=== PATIENT | male | born 1945 | race Caucasian/White ===

== ENCOUNTER → 2017-08-03 | Outpatient (CLI) | payer OTHER | LOC: CFH 08:32 | PROVIDERS: ATTEND Nurse Practitioner | DX: I65.21 Occlusion and stenosis of right carotid artery (principal); I34.9 Nonrheumatic mitral valve disorder, unspecified; I05.9 Rheumatic mitral valve disease, unspecified; I10 Essential (primary) hypertension; Z86.73 Personal history of transient ischemic attack (TIA), and cerebral infarction without residual deficits | CPT/HCPCS: 93306; 93880 ==

== ENCOUNTER 2018-10-10 07:34 | Outpatient (CLI) | payer MEDICARE | END 2018-10-10 23:59 | disposition home or self-care (01) | LOC: CVU 07:34 | PROVIDERS: ATTEND Internal Medicine Cardiovascular Disease | DX: I08.8 Other rheumatic multiple valve diseases (principal); I10 Essential (primary) hypertension | CPT/HCPCS: 93306 ==

== ENCOUNTER 2019-12-15 08:00 | Outpatient (CLI) | payer MEDICARE | END 2019-12-15 23:59 | disposition home or self-care (01) | LOC: SDC 08:00 → EDSTATUS 08:00 → SDC 23:59 | PROVIDERS: ATTEND Internal Medicine Gastroenterology | DX: R19.5 Other fecal abnormalities (principal); Z11.59 Encounter for screening for other viral diseases; Z53.8 Procedure and treatment not carried out for other reasons | CPT/HCPCS: 36415; 87635 ==

== ENCOUNTER 2019-12-28 06:32 | Day surgery (SDC) | payer MEDICARE ==
[~2019-12-28] VITALS: Ht 179.1 cm; Wt 130.2 kg
[2019-12-28] MEDS ORDERED: ASPI325T17 PO (07:33)
[2019-12-28] MEDS ORDERED: GLUC15006 PO (07:33)
[2019-12-28] MEDS ORDERED: ROSU10TA2 PO (07:33)
[2019-12-28] MEDS ORDERED: NAPR220C2 PO (07:33)
[2019-12-28] MEDS ORDERED: METO50TA82 PO (07:33)
[2019-12-28] MEDS ORDERED: CHON400C PO (07:33)
[2019-12-28] MEDS ORDERED: LACTATED RINGERS 1,000 ML IV SCH (07:33)
[2019-12-28] MEDS ORDERED: ALLO300T PO (07:33)
[2019-12-28] MEDS ORDERED: CYAN-27 PO (07:33)
[2019-12-28] MEDS ORDERED: OMEG1CAP23 PO (07:33)
[2019-12-28] MEDS ORDERED: MULT-658 PO (07:33)
[2019-12-28] MEDS ORDERED: CHOL200052 PO (07:33)
[2019-12-28] MEDS ORDERED: BENA40TA3 PO (07:33)
[2019-12-28 07:34] VITALS: BP 146/73
[2019-12-28] MEDS ORDERED: CHLORHEXIDINE 15 ML UDC ONE (07:43)
[2019-12-28] MEDS ORDERED: CHLORHEXIDINE 15 ML UDC MM ONE (08:00)
[2019-12-28] MEDS ORDERED: PROPOFOL 100 ML ONE (08:34)
[2019-12-28 08:42] LABS: ALBUMIN 3.7 g/dL (3.4-5.0); ANION GAP 3 mmol/L (5-15); CALCIUM 9.5 mg/dL (8.5-10.1); CHLORIDE 108 mmol/L (98-107)
[2019-12-28 08:45] LABS: ALANINE AMINOTRANSFERASE 32 U/L (12-78); ALKALINE PHOSPHATASE 85 U/L (45-117); BILIRUBIN,TOTAL 0.6 mg/dL (0.2-1.0); CREATININE 0.95 mg/dL (0.7-1.3); TOTAL PROTEIN 7.6 g/dL (6.4-8.2)
[2019-12-28] MEDS ORDERED: LABETALOL 5MG/ML, 20ML IV PRN (09:00)
[2019-12-28] MEDS ORDERED: MEPERIDINE/PF 25MG/0.5ML IVPush PRN (09:00)
[2019-12-28] MEDS ORDERED: HYDROmorphone 2 MG/ML, 1ML IVPush PRN (09:00)
[2019-12-28] MEDS ORDERED: hydrALAzine 20 MG/ML, 1ML IV PRN (09:00)
[2019-12-28] MEDS ORDERED: OXYcodone 5 MG/5 ML ORAL.SOL UDC PO PRN (09:00)
[2019-12-28] MEDS ORDERED: KETOROLAC 30 MG/1 ML IV PRN (09:00)
[2019-12-28] MEDS ORDERED: ACETAMINOPHEN 325 MG TABLET PO PRN (09:00)
[2019-12-28] MEDS ORDERED: DIAZEPAM 5 MG/ML, 2ML IVPush PRN (09:00)
[2019-12-28] MEDS ORDERED: PROMETHAZINE 25 MG/ML, 1ML IV PRN (09:00)
[2019-12-28] MEDS ORDERED: FENTANYL PF 100 MCG/2ML IV PRN (09:00)
[2019-12-28] MEDS ORDERED: ALBUTEROL SULFATE 2.5 MG/3 ML NPPB PRN (09:00)
== END 2019-12-28 10:20 | disposition home or self-care (01) ==
LOC: OUT 06:32
PROVIDERS: ATTEND Internal Medicine Gastroenterology
DX: R19.5 Other fecal abnormalities (principal); Z11.59 Encounter for screening for other viral diseases; K63.5 Polyp of colon; K62.1 Rectal polyp; K57.30 Diverticulosis of large intestine without perforation or abscess without bleeding; K64.8 Other hemorrhoids; I10 Essential (primary) hypertension; E78.5 Hyperlipidemia, unspecified; E66.9 Obesity, unspecified; Z68.41 Body mass index [BMI] 40.0-44.9, adult; Z79.82 Long term (current) use of aspirin; Z79.899 Other long term (current) drug therapy; Z72.89 Other problems related to lifestyle; Z86.73 Personal history of transient ischemic attack (TIA), and cerebral infarction without residual deficits
CPT/HCPCS: 36415; 45380; 45385; 80053; 87635; 88305; 93005; J2704

== ENCOUNTER → 2020-04-03 | Outpatient (CLI) | payer MEDICARE ==
[~2020-04-03] MED LIST: ALLO300T PO; ASPI325T17 PO; BENA40TA3 PO; CHOL200052 PO; CHON400C PO; CYAN-27 PO; GLUC15006 PO; METO50TA82 PO; MULT-658 PO; NAPR220C2 PO; OMEG1CAP23 PO; ROSU10TA2 PO
== END | disposition home or self-care (01) ==
LOC: CVU 11:58
PROVIDERS: ATTEND Internal Medicine Cardiovascular Disease
DX: I65.23 Occlusion and stenosis of bilateral carotid arteries (principal); I63.50 Cerebral infarction due to unspecified occlusion or stenosis of unspecified cerebral artery; I10 Essential (primary) hypertension
CPT/HCPCS: 93880